=== PATIENT | male | born 1945 | race Hispanic/Latino ===

== ENCOUNTER 2020-06-15 07:24 | Observation (INO) | payer MEDICARE ==
[2020-06-11 11:15] LABS: BASOPHILS % (AUTO) 1.6 % (0.0-5.0); EOSINOPHILS % (AUTO) 1.7 % (0.0-8.0); HEMATOCRIT 39.7 % (42-54); LYMPHOCYTES % (AUTO) 31.8 % (21.0-51.0); MEAN CORPUSCULAR HEMOGLOBIN 28.9 pg (27.0-33.0); MEAN CORPUSCULAR HGB CONC 30.5 g/dL (32.0-36.0); MEAN CORPUSCULAR VOLUME 94.7 fL (79-99); MONOCYTES % (AUTO) 7.6 % (3.0-13.0); PLATELET COUNT (AUTO) 235 K/uL (130-400); RED BLOOD CELL COUNT(AUTO) 4.19 MIL/uL (4.50-6.20); RED CELL DISTRIBUTION WIDTH 15.5 % (11.0-15.5); WHITE BLOOD COUNT (AUTO) 6.3 K/uL (4.8-10.8)
[2020-06-11 11:23] LABS: CREATININE 0.8 mg/dL (0.5-1.5); POTASSIUM 4.3 mmol/L (3.5-5.1)
[2020-06-11 11:46] LABS: INR 0.93 (0.85-1.15); PARTIAL THROMBOPLASTIN TIME 24.6 SEC (26.3-35.5); PROTHROMBIN TIME 10.1 SEC (9.6-11.6)
[~2020-06-15] VITALS: Ht 172.7 cm; Wt 70.7 kg
[2020-06-15] VITALS (26 sets, daily range): BP systolic 107–138; BP diastolic 59–81
[~2020-06-15 07:24] MED LIST: ASPI-1443 PO; MULT-1203 PO; NPH,100V11 SQ; PRAV40TA3 PO; TRAZ-187 PO
[2020-06-15] MEDS ORDERED: LACTATED RINGERS 1000ML 1,000 ML IV ONE ×2 (08:57→15:08)
[2020-06-15] MEDS ORDERED: DEXAMETHASONE SOD PHOSPHATE 10MG/ML 1ML VIAL ONE ×2 (09:00→09:02)
[2020-06-15] MEDS ORDERED: SUCCINYLCHOLINE 200MG/10ML SYR ONE (09:00)
[2020-06-15] MEDS: CEFAZOLIN SODIUM 1 GM VIAL IVP SCH ×4 (09:00→22:06)
[2020-06-15] MEDS ORDERED: MIDAZOLAM HCL 1 MG/ML 2ML VIAL ONE (09:00)
[2020-06-15] MEDS ORDERED: PROPOFOL 10 MG/ML 20ML VIAL IV ONE (09:00)
[2020-06-15] MEDS ORDERED: LIDOCAINE PF 2% 5ML ABBOJECT ONE (09:00)
[2020-06-15] MEDS ORDERED: ONDANSETRON HCL 4 MG/2 ML VIAL ONE (09:01)
[2020-06-15] MEDS ORDERED: GLYCOPYRROLATE 1 MG/5 ML SYRINGE ONE (09:01)
[2020-06-15] MEDS ORDERED: ROCURONIUM 10MG/1ML SYR 10 MG/ML ML ONE (09:01)
[2020-06-15] MEDS ORDERED: NEOSTIGMINE 5MG/5ML SYR IV ONE (09:01)
[2020-06-15] MEDS ORDERED: FENTANYL CITRATE PF 50 MCG/1 ML 2ML VIAL ONE (09:02)
[2020-06-15] MEDS ORDERED: BUPIVACAINE/PF 0.5% 30ML VIAL ONE (09:44)
--- NOTE | 2020-06-15 11:30 | NUR ---
POST OP NOTE: TO ROOM 326, S/P LAP VAN. 4 BAND AIDS ON ABD. TO SM PUNCTURE SURG. WOUNDS IN PLACE, DRY. IVF OF RL INFUSING VIA 20G RT.HAND.PLACED ON HEART MONITOR AND CL. LIQUID DIET ORDERED. IN NO DISTRESS AT THIS TIME.
[2020-06-15] MEDS ORDERED: MORPHINE SULFATE 4 MG/1ML SYG ONE ×2 (13:11→15:24)
[2020-06-15] MEDS: INSULIN HUMULIN R 100 UNIT/ML 3ML SQ SCH ×2 (16:30→20:13)
[2020-06-15] MEDS ORDERED: ACETAMINOPHEN-CODEINE 300/30MG TAB PO PRN (19:45)
[2020-06-15] MEDS ORDERED: ONDANSETRON HCL 4 MG/2 ML VIAL IVP PRN (19:45)
[2020-06-15] MEDS: LACTATED RINGERS 1000ML 1,000 ML IV SCH (20:10)
[2020-06-15] MEDS: MORPHINE SULFATE 4 MG/1ML SYG IV PRN (20:10)
[2020-06-15] MEDS: HYDROMORPHONE 1 MG/1 ML AMP IVP PRN ×3 (20:31→23:36)
[2020-06-16] VITALS: BP 120/68
[2020-06-16] MEDS: HYDROMORPHONE 1 MG/1 ML AMP IVP PRN ×4 (01:14→04:37)
[2020-06-16] MEDS: MORPHINE SULFATE 4 MG/1ML SYG IV PRN (01:57)
[2020-06-16 04:00] VITALS: BP 109/70
[2020-06-16 05:04] LABS: HEMATOCRIT 38.2 % (42-54); MEAN CORPUSCULAR HEMOGLOBIN 28.8 pg (27.0-33.0); MEAN CORPUSCULAR HGB CONC 30.9 g/dL (32.0-36.0); MEAN CORPUSCULAR VOLUME 93.2 fL (79-99); RED BLOOD CELL COUNT(AUTO) 4.1 MIL/uL (4.50-6.20); RED CELL DISTRIBUTION WIDTH 15.5 % (11.0-15.5); WHITE BLOOD COUNT (AUTO) 11.6 K/uL (4.8-10.8)
[2020-06-16 05:15] LABS: HEMOGLOBIN A1C 6.8 % (4.0-6.0)
[2020-06-16 05:19] LABS: CREATININE 0.7 mg/dL (0.5-1.5); POTASSIUM 4.5 mmol/L (3.5-5.1)
[2020-06-16] MEDS: CEFAZOLIN SODIUM 1 GM VIAL IVP SCH (05:25)
[2020-06-16] MEDS: LACTATED RINGERS 1000ML 1,000 ML IV SCH (05:45)
[2020-06-16] MEDS: INSULIN HUMULIN R 100 UNIT/ML 3ML SQ SCH ×2 (06:05→11:35)
[2020-06-16 08:00] VITALS: BP 113/62
--- NOTE | 2020-06-16 08:00 | NUR ---
AM ASSESSMENT. FEELING MUCH BETTER, VERY LITTLE PAIN, SITTING IN CHAIR AND STATES HAS VANITA WALKING QUITE A BIT.
[2020-06-16 10:38] LABS: ALBUMIN 2.8 g/dL (3.5-5.0); BILIRUBIN,DIRECT 0.2 mg/dL (0.0-0.3); BILIRUBIN,TOTAL 0.7 mg/dL (0.2-1.0); TOTAL PROTEIN, SERUM 6.4 g/dL (6.0-8.3)
--- NOTE | 2020-06-16 10:56 | NUR ---
CHART REVIEWED, DISCUSSED W ALEXANDRO- SCHEDULED OUT PATIENT PROCEDURE, NO TRIGGERS/CONCERNS VOICED; DETAILED CM ASSESSMENT DEFERRED AT THIS TIME. DCP HOME TODAY, TOLERATING DIET Addendum: 06/16/20 at 1059 by SHERWIN DAHL RN CM Amended: Links added.
[2020-06-16 11:00] VITALS: BP 112/64
--- NOTE | 2020-06-16 12:48 | NUR ---
[id number] patient signed FINNEY Letter, I faxed FINNEY Letter to [phone] and placed in chart under consent tab.
[2020-06-16] MEDS ORDERED: TYL3B PO ×2 (12:58→13:02)
--- NOTE | 2020-06-16 13:15 | NUR ---
DISCHARGED NOW USING TEACH BACK. DISCONTINUED HEART MONITOR AND REMOVED SALINE LOCK. RX. FO TYLENOL #3 GIVEN. APPT. TO FOLLOW UP WITH DR. MICHEL IN 1 WEEK GIVEN. VERBALIZED UNDERSTANDING OF ALL INST. GIVEN. WHEELED DOWNSTAIRS TO ER AREA WHERE FAMILY IS WAITING FOR HIM.
== END 2020-06-16 13:45 | disposition home or self-care (01) ==
LOC: INTOOBSV 07:24 → DAHIP 07:24 → OBSVTOIN 07:24 → 3DH 12:10
PROVIDERS: ADMIT Surgery; ATTEND Surgery
DX: K81.9 Cholecystitis, unspecified (principal); Z20.828 Contact with and (suspected) exposure to other viral communicable diseases; E11.9 Type 2 diabetes mellitus without complications; E78.5 Hyperlipidemia, unspecified; Z87.891 Personal history of nicotine dependence; Z79.4 Long term (current) use of insulin; Z79.899 Other long term (current) drug therapy
CPT/HCPCS: 36415 ×2; 47562; 71046; 80048 ×2; 80076; 82948 ×7; 83036; 85025; 85027; 85610; 85730; 88304; 93005; 96361 ×2; 96374; 96375; 96376 ×2; A4215; A4221; A4222; A4223; A4600; A4649 ×2; A4663; A6260; C1769 ×3; G0378 ×18; J0330; J0690 ×4; J1100 ×2; J1170 ×7; J1815 ×2; J2001; J2250; J2270 ×4; J2405; J2704; J2710; J3010; J3490 ×2; J7030 ×2; J7120 ×4; U0003